=== PATIENT | male | born 1995 | race Caucasian/White ===

== ENCOUNTER 2020-01-19 05:25 | Inpatient (IN) | payer OTHER ==
[2020-01-17 12:02] LABS: BASOPHILS # (AUTO) 0.03 x10^3/uL (0-0.1); BASOPHILS % (AUTO) 0 % (0-1); EOSINOPHILS # (AUTO) 0.22 x10^3/uL (0-0.4); EOSINOPHILS % (AUTO) 3 % (1-7); LYMPHOCYTES # (AUTO) 2.01 x10^3/uL (1-3.4); LYMPHOCYTES % (AUTO) 31 % (22-44); MD NO; MEAN CORPUSCULAR HEMOGLOBIN 30.3 pg (27.5-34.5); MEAN CORPUSCULAR HGB CONC 33.3 g/dL (33.2-36.2); MEAN CORPUSCULAR VOLUME 91.1 fL (81-97); MEAN PLATELET VOLUME 8.6 fL (7.4-10.4); MONOCYTES # (AUTO) 0.66 x10^3/uL (0.2-0.8); MONOCYTES % (AUTO) 10 % (2-9); NEUTROPHILS # (AUTO) 3.67 x10^3/uL (1.8-6.8); NEUTROPHILS % (AUTO) 56 % (42-75); PLATELET COUNT 275 x10^3/uL (130-400); RED BLOOD COUNT 5.96 x10^6/uL (4.38-5.82); RED CELL DISTRIBUTION WIDTH 12.9 % (9.4-14.8)
[2020-01-17 12:03] LABS: MICROSCOPIC NOT IND
[2020-01-17 12:04] LABS: CULTURE INDICATED? NO
[2020-01-17 12:13] LABS: PROTHROMBIN TIME 10.6 Seconds (9.6-11.5)
[2020-01-17 12:15] LABS: ALANINE AMINOTRANSFERASE 28 U/L (12-78); ALBUMIN 4.5 g/dL (3.4-5.0); ANION GAP 5 mmol/L (5-15); CALCIUM 10.1 mg/dL (8.5-10.1); CHLORIDE 109 mmol/L (98-107); CREATININE 1.18 mg/dL (0.7-1.3)
[2020-01-17 12:17] LABS: ALKALINE PHOSPHATASE 79 U/L (45-117); BILIRUBIN,TOTAL 0.8 mg/dL (0.2-1.0); TOTAL PROTEIN 8.6 g/dL (6.4-8.2)
[~2020-01-19] VITALS: Ht 180.3 cm; Wt 78.9 kg
[~2020-01-19 05:25] MED LIST: CAPS42.56 TD; CHOL10003 PO; FAMO-79 PO; FLUT9.9S NS; KETO5DRO70 OP; LACT10SO28 PO; LEVO5TAB29 PO; LIDOCAINE 5% TD; MELO15TA24 PO; SODIUM CHLORIDE NS
[2020-01-19] MEDS ORDERED: LACTATED RINGERS 1,000 ML IV SCH (05:47)
[2020-01-19 05:49] VITALS: BP 125/86
[2020-01-19] MEDS ORDERED: CHLORHEXIDINE 15 ML UDC ONE (05:55)
[2020-01-19] MEDS ORDERED: CHLORHEXIDINE 15 ML UDC MM ONE (06:00)
[2020-01-19] MEDS ORDERED: BUPIVACAINE/PF-EPI 0.5% 1:200K ONE (06:19)
[2020-01-19] MEDS ORDERED: BACITRACIN 50,000 UNIT ONE (06:19)
[2020-01-19] MEDS ORDERED: KETAMINE 10 MG/ML, 20ML ONE (06:47)
[2020-01-19] MEDS ORDERED: FENTANYL PF 250 MCG/5ML ONE (06:50)
[2020-01-19] MEDS ORDERED: FENTANYL PF 100 MCG/2ML ONE ×2 (06:50→09:16)
[2020-01-19] MEDS ORDERED: MIDAZOLAM 1 MG/ML, 2ML ONE (06:51)
[2020-01-19] MEDS ORDERED: CEFAZOLIN 1,000 MG ONE (07:29)
[2020-01-19] MEDS ORDERED: SUCCINYLCHOLINE 20 MG/ML, 10ML ONE (07:29)
[2020-01-19] MEDS ORDERED: GLYCOPYRROLATE 0.2MG/1ML, 5ML ONE (07:29)
[2020-01-19] MEDS ORDERED: ROCURONIUM 10MG/ML,5ML ONE (07:29)
[2020-01-19] MEDS ORDERED: DEXAMETHASONE 4 MG/ML, 1ML ONE (07:29)
[2020-01-19] MEDS ORDERED: LIDOCAINE-MPF 2% ,5ML ONE (07:29)
[2020-01-19] MEDS ORDERED: NEOSTIGMINE 1 MG/ML, 10ML ONE (07:29)
[2020-01-19] MEDS ORDERED: PROPOFOL 10 MG/ML, 20ML ONE (07:29)
[2020-01-19] MEDS ORDERED: ONDANSETRON 2MG/ML, 2ML ONE (07:29)
[2020-01-19] MEDS ORDERED: ONDANSETRON 2MG/ML, 2ML IV PRN ×2 (07:30→11:00)
[2020-01-19] MEDS ORDERED: LORazepam 2 MG/ML, 1ML IVPush PRN (07:30)
[2020-01-19] MEDS ORDERED: PROMETHAZINE 25 MG/ML, 1ML IV PRN (07:30)
[2020-01-19] MEDS ORDERED: PROMETHAZINE 25 MG SUPP PR PRN (07:30)
[2020-01-19] MEDS ORDERED: OXYcodone 5 MG/5 ML ORAL.SOL UDC PO PRN (07:30)
[2020-01-19] MEDS ORDERED: ACETAMINOPHEN 325 MG TABLET PO PRN (07:30)
[2020-01-19] MEDS ORDERED: HYDROmorphone 2 MG/ML, 1ML IVPush PRN ×2 (07:30→11:00)
[2020-01-19] MEDS ORDERED: ONDANSETRON ODT 8 MG PO PRN (07:30)
[2020-01-19] MEDS ORDERED: MEPERIDINE/PF 25MG/ML,1ML IVPush PRN (07:30)
[2020-01-19] MEDS ORDERED: SUGAMMADEX 200 MG/2 ML IVPush ONE (08:21)
[2020-01-19] MEDS ORDERED: OXYcodone 5 MG/5 ML ORAL.SOL UDC ONE (09:16)
[2020-01-19] MEDS: FENTANYL PF 100 MCG/2ML IV PRN ×3 (09:19→09:37)
[2020-01-19] MEDS ORDERED: METHOCARBAMOL 1,000 MG in DEXTROSE 5% 100 ML IV ONE (09:30)
[2020-01-19 10:30] VITALS: BP 144/91
[2020-01-19] MEDS ORDERED: MAGNESIUM HYDROXIDE 8%, 30ML UDC PO PRN (11:00)
[2020-01-19] MEDS ORDERED: CAPSAICIN HOMETP PRN ×2 (11:00→11:10)
[2020-01-19] MEDS ORDERED: HYDROcodone/APAP 10/325 MG TABLET PO PRN (11:00)
[2020-01-19] MEDS ORDERED: PROMETHAZINE 25 MG/ML, 1ML IM PRN (11:00)
[2020-01-19] MEDS ORDERED: DIPHENHYDRAMINE 50 MG/ML, 1ML IVPush PRN (11:00)
[2020-01-19] MEDS ORDERED: BISACODYL 10 MG SUPP PR PRN (11:00)
[2020-01-19] MEDS ORDERED: SODIUM CHLORIDE NASAL SPRAY 45ML BOTTLE NAS PRN (11:30)
[2020-01-19] MEDS ORDERED: LIDOCAINE 5% HOMETP PRN (11:30)
[2020-01-19] MEDS ORDERED: KETOTIFEN 0.025% HOMEOPHTH PRN (11:30)
[2020-01-19] MEDS ORDERED: MELOXICAM 15 MG TABLET PO PRN (11:30)
[2020-01-19 13:30] VITALS: BP 153/84
[2020-01-19] MEDS: CEFAZOLIN PMX 1GM/50ML 50 ML IVPB SCH ×2 (14:59→22:47)
[2020-01-19] MEDS: D5%-0.9% NACL+KCL 20MEQ 1,000 ML IV SCH ×2 (14:59→21:00)
[2020-01-19] MEDS: DEXAMETHASONE 4 MG/ML, 1ML IV SCH ×2 (14:59→20:56)
[2020-01-19] MEDS: METHOCARBAMOL 750 MG TABLET PO SCH (18:48)
[2020-01-19 18:51] VITALS: BP 141/81
[2020-01-19] MEDS: FAMOTIDINE 20 MG TABLET PO SCH (20:56)
[2020-01-19] MEDS ORDERED: ZOLPIDEM 5MG TABLET PO PRN (21:00)
[2020-01-19] MEDS: HYDROcodone/APAP 5/325 TABLET PO PRN (21:04)
[2020-01-20 00:57] VITALS: BP 122/67
[2020-01-20] MEDS: HYDROcodone/APAP 5/325 TABLET PO PRN ×3 (01:07→10:43)
[2020-01-20] MEDS: METHOCARBAMOL 750 MG TABLET PO SCH ×2 (03:02→10:43)
[2020-01-20] MEDS: DEXAMETHASONE 4 MG/ML, 1ML IV SCH ×2 (03:02→09:21)
[2020-01-20 04:31] VITALS: BP 131/70
[2020-01-20] MEDS: D5%-0.9% NACL+KCL 20MEQ 1,000 ML IV SCH (06:36)
[2020-01-20 08:00] VITALS: BP 134/81
[2020-01-20] MEDS ORDERED: CHOLECALCIFEROL 1,000 UNIT TABLET PO SCH (09:00)
[2020-01-20] MEDS ORDERED: CETIRIZINE 10 MG TABLET PO SCH (09:00)
[2020-01-20] MEDS ORDERED: SENNA/DOCUSATE TABLET PO SCH (09:00)
[2020-01-20] MEDS ORDERED: LACTULOSE 10 GM/15 ML UDC PO SCH (09:00)
[2020-01-20] MEDS ORDERED: FLUTICASONE NASAL SPRAY 16GM NAS SCH (09:00)
[2020-01-20] MEDS: FAMOTIDINE 20 MG TABLET PO SCH (09:21)
[2020-01-20] MEDS ORDERED: HYDR-3653 PO (11:38)
[2020-01-20] MEDS ORDERED: METH4TAB2 PO (11:39)
[2020-01-20] MEDS ORDERED: METH750T87 PO (11:39)
== END 2020-01-20 12:32 | disposition home or self-care (01) | DRG 472 ==
LOC: ORIP 05:25 → 4NE 10:22
PROVIDERS: ADMIT Neurological Surgery; ATTEND Neurological Surgery
PROC: 0RG20A0 Fusion of 2 or more Cervical Vertebral Joints with Interbody Fusion Device, Anterior Approach, Anterior Column, Open Approach (ICD-10-PCS; 2020-01-19)
PROC: 00NW0ZZ Release Cervical Spinal Cord, Open Approach (ICD-10-PCS; 2020-01-19)
PROC: 01N10ZZ Release Cervical Nerve, Open Approach (ICD-10-PCS; 2020-01-19)
PROC: 0RB30ZZ Excision of Cervical Vertebral Disc, Open Approach (ICD-10-PCS; principal; 2020-01-19 07:00)
DX: M48.02 Spinal stenosis, cervical region (principal); G99.2 Myelopathy in diseases classified elsewhere; M47.892 Other spondylosis, cervical region; M54.12 Radiculopathy, cervical region; Z87.891 Personal history of nicotine dependence
CPT/HCPCS: 36415; 72040; J3490; 71046; 80053; 81003; 85025; 85610; 85730; 93005; C1713; G0378; J0690; J1100; J2250; J2405; J2704; J2710; J3010; C1763; C1889; J0330; J2800; J3480; J7120

== ENCOUNTER → 2021-06-25 | Outpatient (CLI) | payer OTHER ==
[~2021-06-25] MED LIST changes: +HYDR-3653 PO; +METH4TAB2 PO; +METH750T87 PO
[2021-06-25 10:16] LABS: BASOPHILS % (AUTO) 1 % (0-1); EOSINOPHILS % (AUTO) 2 % (1-7); LYMPHOCYTES % (AUTO) 27 % (22-44); MEAN CORPUSCULAR HGB CONC 34.7 g/dL (33.2-36.2); MEAN PLATELET VOLUME 7.6 fL (7.4-10.4); MONOCYTES % (AUTO) 9 % (2-9); NEUTROPHILS % (AUTO) 61 % (42-75); PLATELET COUNT 263 x10^3/uL (130-400); RED BLOOD COUNT 5.29 x10^6/uL (4.38-5.82)
[2021-06-25 10:25] LABS: ANION GAP 5 mmol/L (5-15); CALCIUM 8.9 mg/dL (8.5-10.1); CHLORIDE 108 mmol/L (98-107); CREATININE 0.88 mg/dL (0.7-1.3)
[2021-06-25 10:27] LABS: INTERNATIONAL NORMALIZED RATIO 1.02 (0.93-1.1); PROTHROMBIN TIME 10.9 Seconds (9.6-11.5)
[2021-06-25 10:44] LABS: MICROSCOPIC NOT IND
== END | disposition home or self-care (01) ==
LOC: STAR 09:31
PROVIDERS: ATTEND Neurological Surgery
DX: Z01.810 Encounter for preprocedural cardiovascular examination (principal); Z01.811 Encounter for preprocedural respiratory examination; Z01.812 Encounter for preprocedural laboratory examination; R79.1 Abnormal coagulation profile; M54.12 Radiculopathy, cervical region; R82.90 Unspecified abnormal findings in urine; R94.31 Abnormal electrocardiogram [ECG] [EKG]; R00.1 Bradycardia, unspecified
CPT/HCPCS: 36415; 71046; 80048; 81003; 85025; 85610; 85730; 87635; 93005

== ENCOUNTER 2021-07-01 05:26 | Inpatient (IN) | payer OTHER ==
[~2021-07-01] VITALS: Ht 180.3 cm; Wt 71.8 kg
[2021-07-01 06:00] VITALS: BP 122/79
[2021-07-01] MEDS ORDERED: CHLORHEXIDINE 15 ML UDC PO ONE (06:00)
[2021-07-01] MEDS ORDERED: LACTATED RINGERS 1,000 ML IV SCH (06:00)
[2021-07-01] MEDS ORDERED: VANCOMYCIN 500 MG ONE (06:22)
[2021-07-01] MEDS ORDERED: EPINEPHRINE 1 MG/ML, 1ML ONE (06:22)
[2021-07-01] MEDS ORDERED: BUPIVACAINE/PF 0.5% ONE (06:22)
[2021-07-01] MEDS ORDERED: CEFAZOLIN 1,000 MG ONE (06:23)
[2021-07-01] MEDS ORDERED: FENTANYL PF 250 MCG/5ML ONE (06:43)
[2021-07-01] MEDS ORDERED: MIDAZOLAM 1 MG/ML, 2ML ONE (06:43)
[2021-07-01] MEDS ORDERED: ACETAMINOPHEN 325 MG TABLET PO PRN (07:30)
[2021-07-01] MEDS ORDERED: LORazepam 2 MG/ML, 1ML IVPush PRN (07:30)
[2021-07-01] MEDS ORDERED: ONDANSETRON 2MG/ML, 2ML IVPush PRN (07:30)
[2021-07-01] MEDS ORDERED: METHOCARBAMOL 1,000 MG in DEXTROSE 5% 100 ML IV PRN (07:30)
[2021-07-01] MEDS ORDERED: MEPERIDINE/PF 25MG/0.5ML IVPush PRN (07:30)
[2021-07-01] MEDS ORDERED: HYDROmorphone 1 MG/ML, 1ML INJ IVPush PRN (07:30)
[2021-07-01] MEDS ORDERED: HALOPERIDOL 5 MG/ML IV PRN (07:30)
[2021-07-01] MEDS ORDERED: OXYcodone 5 MG/5 ML ORAL.SOL UDC PO PRN (07:30)
[2021-07-01] MEDS ORDERED: PROMETHAZINE 25 MG/ML, 1ML IVPush PRN (07:30)
[2021-07-01] MEDS ORDERED: PROMETHAZINE 25 MG SUPP PR PRN (07:30)
[2021-07-01] MEDS ORDERED: METH-640 PO (08:11)
[2021-07-01] MEDS ORDERED: TRAM50TA2 PO (08:11)
[2021-07-01] MEDS ORDERED: ACETAMINOPHEN 650 MG/20.3 ML UDC ONE (08:18)
[2021-07-01] MEDS ORDERED: FENTANYL PF 100 MCG/2ML ONE (08:18)
[2021-07-01] MEDS ORDERED: OXYcodone 5 MG/5 ML ORAL.SOL UDC ONE (08:19)
[2021-07-01] MEDS: FENTANYL PF 100 MCG/2ML IV PRN ×3 (08:23→08:52)
[2021-07-01] MEDS ORDERED: METHOCARBAMOL 1000MG/10 ML IV SCH (08:30)
== END 2021-07-01 10:46 | disposition home or self-care (01) | DRG 517 ==
LOC: ORIP 05:26
PROVIDERS: ADMIT Neurological Surgery; ATTEND Neurological Surgery
PROC: 0RP104Z Removal of Internal Fixation Device from Cervical Vertebral Joint, Open Approach (ICD-10-PCS; principal; 2021-07-01 07:00)
DX: T84.018A Broken internal joint prosthesis, other site, initial encounter (principal); M54.2 Cervicalgia; M54.12 Radiculopathy, cervical region; Y83.8 Other surgical procedures as the cause of abnormal reaction of the patient, or of later complication, without mention of misadventure at the time of the procedure; Z20.822 Contact with and (suspected) exposure to COVID-19; Z88.2 Allergy status to sulfonamides; Y92.89 Other specified places as the place of occurrence of the external cause; Z79.899 Other long term (current) drug therapy; Z98.1 Arthrodesis status
CPT/HCPCS: 72040; S0020; J0171; J0690; J2250; J3010; J3370; J2800; J7120